=== PATIENT | male | born 1975 | race Caucasian/White ===

== ENCOUNTER 2018-08-27 14:02 | Emergency (ER) | payer OTHER ==
[2018-08-27 14:24] VITALS: BP 115/75; PULSE 82; TEMP 99.4; BMI 26.7
[2018-08-27] MEDS ORDERED: ACETAMINOPHEN 500 MG TABLET (FP) PO ONE (14:26)
--- NOTE | 2018-08-27 14:26 | PDOC ---
History of Present Illness - General Chief Complaint: Vomiting/Diarrhea Stated Complaint: N/V/D Time Seen by Provider: 08/27/18 14:04 History Source: Patient Exam Limitations: No Limitations - History of Present Illness Initial Comments: 08/27/18 14:04 43YOM with unremarkable PMH who p/w nausea, NBNB vomiting x1 episode, nonbloody/ nonblack diarrhea x3 episodes, generalized abdominal discomfort, chills, mild headache, and head-to-toe body aches for the past 24 hours. He denies any focal neck or chest pain, SOB, cough, sore throat, rash, lightheadedness, dysuria, or other new symptoms. He took one dose of Tylenol yesterday but nothing for the symptoms other than that. No recent sick contacts that he knows of. Did not get a flu vaccination this year. Past History - Past Medical History Allergies/Adverse Reactions: Allergies Allergy/AdvReac Type Severity Reaction Status Date / Time No Known Allergies Allergy Verified 08/27/18 14:33 Home Medications: Ambulatory Orders NK [No Known Home Medication] 08/27/18 Review of Systems - Review of Systems Able to Perform ROS?: Yes Comments:: 08/27/18 14:30 GEN: chills, malaise, myalgias, no fever, generalized weakness, or weight change HEENT: no ear pain, sore throat, vision change, or eye pain CV: no chest pain, palpitations, lightheadedness, syncope, or edema RESP: no cough, wheezing, or SOB GI: abdominal pain, nausea, vomiting, diarrhea, no constipation, or white/black/ bloody stool : no dysuria, hematuria, incontinence, retention, bleeding, or discharge MSK: no neck/back pain, muscle weakness/pain, or joint swelling/pain NEURO: mild headache, no seizure, vertigo, numbness, tingling, or focal weakness PSYCH: no substance use, no behavior change SKIN: no jaundice, no rash ROS otherwise negative except as noted in HPI *Physical Exam - Vital Signs 08/27/18 14:31 Initial Vital Signs Temp Pulse Resp BP Pulse Ox 99.4 F 82 20 115/75 100 08/27/18 14:03 08/27/18 14:03 08/27/18 14:03 08/27/18 14:03 08/27/18 14:03 - Physical Exam Comments: 08/27/18 14:31 GENERAL: nontoxic but tired and uncomfortable appearing, A/Ox4, answers questions appropriately, accompanied by significant other at bedside HEENT: PERRLA, EOMI, moist mucous membranes NECK/BACK: no midline ttp, no spinal stepoff or deformity, no hematoma, full ROM , neck supple CARDIOVASCULAR: regular rate/rhythm, normal S1S2, no MGR, strong peripheral pulses, capillary refill <2 seconds, extremities wwp, no edema LUNGS/RESPIRATORY: no respiratory distress, CTAB GI/ABDOMEN: symmetric [id number], normoactive BS, soft, no ttp, no midline pulsatile masses : no CVA tenderness EXTREMITIES: no muscle atrophy, no acute deformity SKIN: warm and dry, no pallor, no jaundice, no rash, no bruising, no skin breakdown, no cuts, no lesions NEUROLOGICAL: GCS 15, CN II-XII grossly intact, 5/5 strength proximally and distally, no facial droop Medical Decision Making - Medical Decision Making 08/27/18 14:32 Adult patient p/w chills, nausea, vomiting, generalized abdominal pain, body aches. Initial Vital Signs Temp Pulse Resp BP Pulse Ox 99.4 F 82 20 115/75 100 08/27/18 14:03 08/27/18 14:03 08/27/18 14:03 08/27/18 14:03 08/27/18 14:03 Exam: As noted in Physical Exam section. DDX IBNLT: most likely influenza, norovirus, or other viral syndrome. Much less likely bacterial gastroenteritis, parasitic gastroenteritis, colitis, diverticulitis, SBO, appendicitis, or other more serious pathology. W/U ordered: influenza swab, EKG TX ordered: Tylenol Laboratory Tests 08/27/18 14:30 Influenza A (Rapid) Negative Influenza B (Rapid) Negative Reassessment: Patient states feeling much better, feels tired and wants to go home and sleep. 08/27/18 15:01 This patient has gotten significant relief of symptoms while in the ED. He would not want to take Tamiflu after discussion of risks/benefits. On last reassessment, vitals are wnl, pain is reasonably controlled, and exam is benign. Workup is not concerning for emergency-level pathology at this time. This patient is appropriate for discharge with close outpatient follow up. They are comfortable with this plan and will follow up with their primary care provider in 1-3 days. Specific return precautions are discussed and they will come back to the ER if necessary. *DC/Admit/Observation/Transfer Diagnosis at time of Disposition: Vomiting Qualifiers: Vomiting type: unspecified Vomiting Intractability: non-intractable Nausea presence: with nausea Qualified Code(s): R11.2 - Nausea with vomiting, unspecified Diarrhea Qualifiers: Diarrhea type: unspecified type Qualified Code(s): R19.7 - Diarrhea, unspecified - Discharge Dispostion Disposition: HOME Condition at time of disposition: Good Decision to Admit order: No - Referrals Referrals: David Vargas MD [Primary Care Provider] - - Patient Instructions Printed Discharge Instructions: DI for Diarrhea and Traveler's Diarrhea -- Adult, DI for Vomiting -- Adult Additional Instructions: You were seen in the ER for associated fever. You took medications at home for the fever, and these were working here in the department, so your temperature decreased to a normal level. After our assessment, we do not believe there is a medical emergency at this time, and we believe it is safe to go home. Please continue to take the Tylenol 1000 mg as needed for fever and discomfort, up to 4 times a day. Also continue the Motrin 600 mg as needed for fever and discomfort, up to 4 times a day. Please follow up with your regular doctor in 1- 3 days. Call their clinic as soon as possible, tell them you were seen in the ER , and tell them you need an appointment. If there are any new or worsening symptoms, especially rash, difficulty breathing, chest pain, fainting, vomiting blood, bloody diarrhea, or other symptoms, please come back to the ER at any time (24 hours a day). If the symptoms appear severe or life-threatening, please call 911 to have an ambulance take you to the ER. We are still waiting on the results of your influenza test, but we feel comfortable sending you home and calling you with the results. We are giving you a work note for the day off tomorrow (return to work on Tuesday) in case you need it. See your regular doctor on Tuesday. YOU SHOULD TRY THE FOLLOWING salt water gargles and warm lemon tea is appropriate as well. that should soothe your throat minimize spread of infection given contagious nature, and cover your mouth and wash your hands adequately with soap and water. Stay well hydrated and rest. stay away from young children, elderly and immunocompromised, sick people Return precautions include respiratory distress, difficulty breathing, chest pain, lethargy, confusion, dehydration, high fevers or pain. - Post Discharge Activity Forms/Work/School Notes: Back to Work
--- NOTE | 2018-08-27 15:03 | PDOC ---
Attending Attestation - Resident Resident Name: JohanAlly - ED Attending Attestation I have performed the following: I have examined & evaluated the patient, The case was reviewed & discussed with the resident, I agree w/resident's findings & plan - HPI HPI: 08/27/18 15:01 43YOM with unremarkable PMH who p/w nausea, NBNB vomiting x1 episode, nonbloody/ nonblack diarrhea x3 episodes, generalized abdominal discomfort, chills, mild headache, and head-to-toe body aches x 1 day. no sick contacts or travel. took tylenol yesterday, nothing today. - Physicial Exam PE: 08/27/18 15:01 NAD, well appearing, PERRL, EOMI, MMM, nl conjunctiva, anicteric; neck supple. lungs clear, RRR, abdomen soft nontender. CRENSHAW x4, no focal neuro deficits. No peripheral edema. normal color for ethnicity, WWP. - Medical Decision Making 08/27/18 15:01 hpi as documented. vS wnl, no fever abdomen soft and nontender, nontoxic appearing flu test_negative. given tylenol for pain, milagros PO 'most likely viral syndrome vs gastroenteritis vs food poisoning. no abdominal sx to suggest abdominal pathology. DC in stable condition, PCP followup, return precautions as provided. continue with supportive care, hydration, adv diet as tolerated 08/27/18 16:23
== END 2018-08-27 15:08 | disposition home or self-care (01) ==
LOC: FER 14:02
DX: R11.2 Nausea with vomiting, unspecified (principal); R19.7 Diarrhea, unspecified
CPT/HCPCS: 87804; 99281-25